=== PATIENT | female | born 2000 | race Caucasian/White ===

== ENCOUNTER 2023-06-29 11:58 | Emergency (ER) | payer BC, SELFPAY ==
--- NOTE | ~2023-06-29 | XR_ITS ---
EXAMINATION: XR chest 2V DATE: 06/29/2023 12:35 INDICATION: Chest pain. Shortness of breath. TECHNIQUE: Frontal and lateral views of the chest were obtained. COMPARISON: None. FINDINGS: There is no pneumonia, pleural effusion, or pneumothorax. The heart size is normal. IMPRESSION: 1. No acute cardiopulmonary disease. Reviewed, dictated and finalized at location A.
--- NOTE | 2023-06-29 12:02 | ECG_ITS ---
Measurements Intervals [place] Rate: 86 P: 68 ME: 137 QRS: 32 QRSD: 89 T: 39 QT: 374 QTc: 449 Interpretive Statements SINUS RHYTHM POSSIBLE LEFT ATRIAL ENLARGEMENT INCOMPLETE RIGHT BUNDLE BRANCH BLOCK BORDERLINE T WAVE ABNORMALITY- ANTERIOR LEADS BORDERLINE ECG NO PREVIOUS ECG AVAILABLE FOR COMPARISON Electronically Signed On 06-29-2023 13:04:44 CDT by Mac Jang D.O.
[2023-06-29 12:19] LABS: Basophils Percent Auto 0.4 % (0.2-1.2); Eosinophils Absolute Auto 0.1 K/mm3 (0-0.3); Hematocrit 37.6 % (37.0-47.0); Hemoglobin 12.3 g/dL (12.0-15.0); Immature Granulocyte Absolute 0.01 K/mm3 (0.00-0.031); Immature Granulocyte Percent A 0.2 % (0-0.5); Lymphocytes Absolute Auto 1.94 K/mm3 (0.9-3.2); Lymphocytes Percent Auto 39.2 % (18.3-44.2); Mean Corpuscular HGB Conc 32.7 g/dl (32-36); Mean Corpuscular Hemoglobin 28.9 pg (26-34); Mean Corpuscular Volume 88.3 fl (80-100); Mean Platelet Volume 9.2 fl (7.4-10.4); Monocytes Absolute Auto 0.3 K/mm3 (0.1-0.6); Monocytes Percent Auto 6.5 % (2.6-8.5); Neutrophils Absolute Auto 2.6 K/mm3 (1.3-6.7); Neutrophils Percent Auto 52.7 % (45.5-73.1); Platelet Count Result 226 k/mm3 (150-375); Red Blood Count 4.26 M/mm3 (4.2-5.4); Red Cell Distribution Width 13.3 % (11.5-14.5)
[2023-06-29 12:28] LABS: Alanine Aminotransferase 14 U/L (6-35); Albumin Level 4.8 g/dL (3.5-5.1); Alkaline Phosphatase 52 U/L (38-126); Anion Gap 11 mmol/L (8-16); Aspartate Amino Transferase 21 U/L (14-36); Bilirubin,Total 0.3 mg/dL (0.2-1.3); Blood Urea Nitrogen 5 mg/dL (7-17); Calcium 9.7 mg/dL (8.4-10.2); Carbon Dioxide 26 mmol/L (22-30); Chloride 104 mmol/L (98-107); Estimated Glomerular Filt Rate > 60; Glucose 99 mg/dL (65-110); Lipase 72 U/L (23-300); Potassium 3.8 mmol/L (3.4-5.0); Sodium 141 mmol/L (137-145)
[2023-06-29 12:30] LABS: Prothrombin Time 14.1 Seconds (11.1-14.7)
[2023-06-29 12:31] LABS: Partial Thromboplastin Time 28.2 SECONDS (22.3-36.8)
[2023-06-29 12:46] LABS: Troponin I < 0.012 ng/mL (0.000-0.034)
[2023-06-29 13:02] VITALS: BP 150/80; PULSE 92; RESP 14; TEMP 36.9; O2SAT 100
[2023-06-29 15:46] LABS: Troponin I < 0.012 ng/mL (0.000-0.034)
[2023-06-29 15:59] VITALS: O2SAT 99
[2023-06-29] MEDS: hydrOXYzine HCL 25 MG TABLET PO (17:01)
[2023-06-29 17:19] VITALS: BP 111/78; PULSE 70; RESP 20; TEMP 36.8; O2SAT 100
--- NOTE | 2023-06-29 17:22 | PC.NURSE ---
Pt denies any c/o states she feels ready to go home
--- NOTE | 2023-06-29 17:33 | ED.GENADULT ---
HPI - General Adult General Chief complaint: Chest Pain Stated complaint: CPX1 MONTH, SOB [id number] Time Seen by Provider: 06/29/23 15:56 History of Present Illness HPI narrative: Fred Terry is a 22 y/o female who presents with reports of having a month long of off and on chest pain and shortness of breath. She states that it happens at night/ at rest / on exertion. SHe has been worked up previously for this and nothing has been found. She has an appointment coming up next week with a psychiatrist to get help with her anxiety, but she wanted to make sure that there wasn't anything else going on Denies cough/fever/chills/URI symptoms/ nausea/vomiting/abdominal pain - does not take any medications daily and no other PMHx. Related Data Allergies Allergy/AdvReac Type Severity Reaction Status Date / Time Penicillins Allergy Hives Verified 06/29/23 16:39 Review of Systems Review of Systems: CONSTITUTIONAL: Denies fever, chills, or sweats. EYES: Denies visual changes, redness, or discharge. ENT: Denies rhinorrhea, congestion, sore throat, or otalgia. CARDIOVASCULAR: Reports chest pain off and on no palpitations, or edema. RESPIRATORY: Denies cough reports feeling short of breath off and on the past week GASTROINTESTINAL: Denies abdominal pain, nausea, vomiting, or diarrhea. GENITOURINARY: Denies dysuria or hematuria. SKIN: Denies rash or itching. MUSCULOSKELETAL: Denies back pain, joint pain, or myalgia. NEUROLOGIC: Denies headache, numbness, dizziness, or weakness. PSYCHIATRIC: reports of some anxiety over the past month that seems to be getting worse. Exam Narrative: GENERAL: Well-appearing, well-nourished, and in no acute distress. HEAD: Normocephalic, atraumatic. EYES: PERRLA and EOMI. ENT: Nares clear, no rhinorrhea or epistaxis. Mucous membranes moist. Oropharynx without tonsillar hypertrophy exudate or other lesions. NECK: Supple. No adenopathy or masses. No carotid bruits or JVD CHEST: Clear to auscultation. No respiratory distress. No wheezes rales or rhonchi HEART: Regular rate and rhythm. No murmur heard. Normal peripheral pulses. ABDOMEN: Soft, nontender, nondistended, normal active bowel sounds. EXTREMITIES: Normal range of motion. No edema. SKIN: Warm, dry, no rash. NEURO: No focal deficits. Alert and oriented x3. PSYCH: Normal mood and affect. Course Vital Signs Vital signs: Vital Signs Temperature 36.9 C 06/29/23 13:02 Pulse Rate 92 06/29/23 13:02 Respiratory Rate 14 06/29/23 13:02 Blood Pressure 150/80 H 06/29/23 13:02 Pulse Oximetry 100 06/29/23 13:02 Oxygen Delivery Room Air 06/29/23 13:02 Temperature 36.8 C 06/29/23 17:19 Pulse Rate 70 06/29/23 17:19 Respiratory Rate 20 06/29/23 17:19 Blood Pressure 111/78 06/29/23 17:19 Pulse Oximetry 100 06/29/23 17:19 Oxygen Delivery Room Air 06/29/23 15:59 Medical Decision Making MDM Narrative Medical decision making narrative: On exam pt is calm, discussed with her that her labs / and x ray are stable and then her mom told her to tell me the truth why she is here. The pt then explains that she has been dealing with anxiety for about a month and she has been worked up at other places for these symptoms and nothing is ever found, but she wanted to be checked out again today with her mom. Discussed with pt that we could try an Atarax here and she states that she has been prescribed this medication for her anxiety but she has been to scared to take it. 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 Patient given a dose and re-evaluated and she states that she does feel better and she will continue the med at home that she already has, she also has an appointment with a psychiatrist next week to help with her anxiety. She also states that she feels relieved that her labs and x ray are normal pt is low risk for PE - not tachycardic, not hypoxic, not on bir
== END 2023-06-29 18:20 | disposition home or self-care (01) ==
PROVIDERS: Preventive Medicine Aerospace Medicine; Emergency Provider Nurse Practitioner Family
DX: R07.89 Other chest pain (principal); F41.9 Anxiety disorder, unspecified
CPT/HCPCS: 36415; 71046; 80053; 81025; 83690; 84484; 85025; 85610; 85730; 93005; 99284; A9270

== ENCOUNTER 2024-04-09 15:01 | Emergency (ER) | payer BC, SELFPAY ==
[2024-04-09 15:20] VITALS: BP 125/76; PULSE 99; RESP 16; TEMP 37.2; O2SAT 100
--- NOTE | 2024-04-09 15:33 | ED.URI ---
HPI - URI/Sore Throat General Chief Complaint: Upper Respiratory Infection Stated Complaint: sorethroat,cough Time Seen by Provider: 04/09/24 15:17 Source: patient and RN notes reviewed Mode of arrival: ambulatory Limitations: no limitations History of Present Illness HPI Narrative: Patient presents today with a 3 day history of sore throat, cough, postnasal drip. Denies fever, shortness of breath. Currently rates her pain 5/10 has been taking Tylenol with mild relief. Denies known sick contacts. Related Data Home Medications Medication Instructions Recorded Confirmed escitalopram oxalate 10 mg tablet 10 mg PO DAILY 04/09/24 04/09/24 Allergies Allergy/AdvReac Type Severity Reaction Status Date / Time Penicillins AdvReac Mild Hives Verified 04/09/24 15:07 Review of Systems Review of Systems: CONSTITUTIONAL: Denies body aches, fever, chills, or sweats. EYES: Denies visual changes, redness, or discharge. ENT: Denies rhinorrhea, congestion, or otalgia.+ sore throat, postnasal drip CARDIOVASCULAR: Denies chest pain, palpitations, or edema. RESPIRATORY: Denies dyspnea.+ cough GASTROINTESTINAL: Denies abdominal pain, nausea, vomiting, or diarrhea. GENITOURINARY: Denies dysuria or hematuria. SKIN: Denies rash, itching, or wounds. MUSCULOSKELETAL: Denies back pain, joint pain, or myalgia. NEUROLOGIC: Denies headache, numbness, tingling, or weakness. PSYCH: Denies depression or anxiety. PMFSH Comments At time of signature, I have reviewed and agree with nursing past medical, surgical, social and family history unless otherwise noted. Please see nursing chart for further information. There is no relevant family history pertinent to the presenting complaint Exam Narrative: GENERAL: Well-appearing, well-nourished, and in no acute distress. HEAD: Normocephalic, atraumatic. EYES: EOMI. No redness or drainage. Conjunctivae normal. ENT: Mucous membranes pink and moist. Nares clear. No rhinorrhea. TMs normal bilaterally. Throat erythematous without edema or exudate. Uvula midline. NECK: Normal AROM. Supple. No lymphadenopathy. CHEST: No respiratory distress. Clear to auscultation. HEART: Regular rate and rhythm. No murmur appreciated. EXTREMITIES: Normal range of motion. No edema. SKIN: Warm, dry, no rash. Capillary refill normal. Normal skin turgor. NEURO: No focal deficits. Alert and oriented x3. Gait steady. PSYCH: Normal affect. No signs of depression or anxiety. Course Course Level of Care: Express Care Visit Vital Signs Vital signs: Vital Signs Temperature 99.0 F 04/09/24 15:20 Pulse Rate 99 04/09/24 15:20 Respiratory Rate 16 04/09/24 15:20 Blood Pressure 125/76 04/09/24 15:20 Pulse Oximetry 100 04/09/24 15:20 Oxygen Delivery Room Air 04/09/24 15:20 Temperature 99.0 F 04/09/24 15:20 Pulse Rate 99 04/09/24 15:20 Respiratory Rate 16 04/09/24 15:20 Blood Pressure 125/76 04/09/24 15:20 Pulse Oximetry 100 04/09/24 15:20 Oxygen Delivery Room Air 04/09/24 15:20 Reviewed MDM - URI/Sore Throat MDM Narrative Medical decision making narrative: Rapid strep negative. Culture pending. Symptoms likely viral in etiology. Discussed [id number] medication use and duration of illness. No prescription medications indicated at this time. Anticipatory guidance given. Differential Diagnosis Differential diagnosis: Likely upper respiratory infection, viral infection, pharyngitis and other (Strep throat) Lab Data Attestation: I reviewed the patient's lab results. Labs: Strep Screen Presumptive Negative *(Reference Range: Negative)* Critical Care Time Critical Care Time Critical Care Time: No Discharge Plan Discharge Clinical Impression: Upper respiratory infection Qualifiers: URI type: unspecified URI Qualified Code(s): J06.9 - Acute upper respiratory infection, unspecified Marti
== END 2024-04-09 15:37 | disposition home or self-care (01) ==
PROVIDERS: Emergency Provider Nurse Practitioner
DX: J06.9 Acute upper respiratory infection, unspecified (principal); F41.9 Anxiety disorder, unspecified
CPT/HCPCS: 87081; 87880; 99213; G0463